=== PATIENT | male | born 1945 | race Caucasian/White ===

== ENCOUNTER → 2018-03-21 06:55 | Outpatient (CLI) | payer MEDICARE, SELFPAY ==
--- NOTE | 2018-03-21 | DI.CT.S_ITS ---
PROCEDURE: CT ABDOMEN WO/W CON INDICATIONS: FOLLOWING LEFT RENAL MASS TECHNIQUE: Optional 5 mm thick noncontrast images acquired from the diaphragm to the iliac crests. After the administration of intravenous contrast, 5 mm thick images again acquired from the diaphragm to the iliac crests in the arterial and urographic phases. 5 mm thick coronal and sagittal reformats were then acquired. For radiation dose reduction, the following was used: automated exposure control, adjustment of mA and/or kV according to patient size. COMPARISON: [facility], CT, ABDOMEN W&WO CONTRAST, 09/11/2015, 8:25. [facility], US, RENAL COMPLETE, 09/01/2015, 11:47. FINDINGS: Image quality: Excellent. Lung bases: Lung bases are clear. Heart size is normal. Genitourinary: The kidneys demonstrate normal size. On precontrast imaging, small bilateral nonobstructing kidney stones are seen. The largest on the left measures 1-2 mm. The largest on the right measures 2 mm, as on series 2 image 26. At the superior pole of the left kidney, there is a low-density lesion seen that measures 17 x 15 mm in greatest axial dimension, with a craniocaudal extent of 1.9 cm. On precontrast imaging, this measures 32 Hounsfield units. On the delay after 30 seconds, this measures 36 Hounsfield units. On the 10 minute delayed images also measures 36 Hounsfield units. Simple appearing bilateral renal cysts are seen elsewhere. When filled with contrast, the renal calyces demonstrate a normal appearance. There is no hydronephrosis. The visualized ureters are unremarkable. Other solid organs: Liver is normal in size and enhancement. Gallbladder is partially collapsed at the time of this study. Biliary system is non dilated. Pancreas enhances normally. The spleen is enlarged, measuring nearly 16 cm in greatest axial dimension, and nearly 15 cm craniocaudally. No adrenal nodules. Peritoneum and bowel: Unenhanced bowel loops are normal in wall thickness and caliber. No free fluid or air. Nodes and vessels: No retroperitoneal or mesenteric adenopathy by size criteria. Aorta and inferior vena cava are normal in caliber. Atherosclerotic calcification is noted. Bones: No suspicious bony lesions. No vertebral body compression fractures. Age-appropriate bony degenerative changes are seen. Miscellaneous: No ventral hernias. IMPRESSION: Nonenhancing hyperdense cyst at the superior pole of the left kidney. Simple appearing bilateral renal cysts are seen. Nonobstructing bilateral renal stones are seen. Splenomegaly. Dictated by: Jesus Manuel Salgado M.D. on 03/21/2018 at 10:45 Approved by: Jesus Manuel Slagado M.D. on 03/21/2018 at 10:59
== END ==
PROVIDERS: Visit Provider Student in an Organized Health Care Education/Training Program
DX: N28.1 Cyst of kidney, acquired (principal); N20.0 Calculus of kidney; N28.9 Disorder of kidney and ureter, unspecified; R16.1 Splenomegaly, not elsewhere classified
CPT/HCPCS: 74170; Q9967

== ENCOUNTER → 2018-06-21 10:10 | Outpatient (CLI) | payer MEDICARE, SELFPAY ==
--- NOTE | 2018-06-21 | DI.RAD.S_ITS ---
PROCEDURE: XR SHOULDER LT MIN 2V INDICATIONS: PAIN IN LEFT SHOULDER TECHNIQUE: 3 -views of the shoulder were acquired. COMPARISON: [facility], SHOULDER MINIMUM 2VIEW RIGHT, 12/22/2011, 10:25. [facility], SHOULDER MINIMUM 2 VIEW LEFT, 12/22/2011, 10:20. [facility], SHOULDER MINIMUM 2VIEW RIGHT, 08/13/2013, 17:54. FINDINGS: Bones: No fractures or dislocations. No suspicious bony lesions. Visualized ribs appear intact. [id number] AC and glenohumeral joint degeneration, with spurring and subchondral sclerosis. Soft tissues: No suspicious soft tissue calcifications. IMPRESSION: [id number] left shoulder joint degeneration. No interval change since 12/22/11 Dictated by: Harpreet Orantes M.D. on 06/21/2018 at 11:42 Approved by: Harpreet Orantes M.D. on 06/21/2018 at 11:43
--- NOTE | 2018-06-21 | DI.RAD.S_ITS ---
PROCEDURE: XR KNEE RT 3V INDICATIONS: PAIN IN RIGHT KNEE TECHNIQUE: 3 views of the knee were acquired. COMPARISON: None. FINDINGS: Bones: No fractures or dislocations. No suspicious bony lesions. Prominent spur at the superior and inferior pole of the patella. Mild medial joint space narrowing. Subchondral sclerosis and degenerative osteophyte formation. There is also chronic appearing osseous fragmentation of the tibial tuberosity suggesting sequela of Emmanuel-Schlatter disease Soft tissues: No joint effusion. No suspicious soft tissue calcifications. IMPRESSION: Mild right knee joint degeneration Distal quadriceps and proximal/distal patellar tendinopathy Dictated by: Harpreet Orantes M.D. on 06/21/2018 at 11:45 Approved by: Harpreet Orantes M.D. on 06/21/2018 at 11:46
--- NOTE | 2018-06-21 | DI.RAD.S_ITS ---
PROCEDURE: XR KNEE LT 3V INDICATIONS: PAIN IN LEFT KNEE TECHNIQUE: 3 views of the knee were acquired. COMPARISON: None. FINDINGS: Bones: No fractures or dislocations. No suspicious bony lesions. Mild narrowing of the medial joint space. Subchondral sclerosis and diffuse spurring. Prominent spur at the superior pole of the patella. Soft tissues: No joint effusion. No suspicious soft tissue calcifications. IMPRESSION: Mild left knee joint degeneration. Dictated by: Harpreet Orantes M.D. on 06/21/2018 at 11:44 Approved by: Harpreet Orantes M.D. on 06/21/2018 at 11:45
[2018-06-21 12:13] LABS: Magnesium 1.6 mg/dL (1.6-2.3)
== END ==
PROVIDERS: Visit Provider Student in an Organized Health Care Education/Training Program
DX: M25.512 Pain in left shoulder (principal); M19.012 Primary osteoarthritis, left shoulder; M17.0 Bilateral primary osteoarthritis of knee; M25.562 Pain in left knee; M25.561 Pain in right knee; E83.42 Hypomagnesemia
CPT/HCPCS: 36415; 73030; 73562; 83735

== ENCOUNTER → 2018-10-11 11:52 | Outpatient (CLI) | payer MEDICARE, MEDICAID, SELFPAY ==
--- NOTE | 2018-10-11 | DI.US.S_ITS ---
PROCEDURE: US ARTERIAL DUPLEX LE BI INDICATIONS: Peripheral vascular disease, unspecified TECHNIQUE: Color and pulse Doppler interrogation was performed of both lower extremity arterial systems, with image documentation. COMPARISON: None. FINDINGS: Right lower extremity: Common femoral artery: 142 cm/sec, with triphasic flow. Deep femoral artery: 56 cm/sec, with triphasic flow. Proximal superficial femoral artery: 84 cm/sec, with triphasic flow. Mid superficial femoral artery: 101 cm/sec, with triphasic flow. Distal superficial femoral artery: 98 cm/sec, with triphasic flow. Popliteal artery: 55 cm/sec, with triphasic flow. Posterior tibial artery: 85 cm/sec, with triphasic flow. Anterior tibial artery/dorsalis pedis: 88 cm/sec, with triphasic flow. Ludwig-scale imaging description: Minimal scattered plaque. Left lower extremity: Common femoral artery: 82 cm/sec, with triphasic flow. Deep femoral artery: 66 cm/sec, with triphasic flow. Proximal superficial femoral artery: 66 cm/sec, with triphasic flow. Mid superficial femoral artery: 84 cm/sec, with triphasic flow. Distal superficial femoral artery: 58 cm/sec, with triphasic flow. Popliteal artery: 53 cm/sec, with triphasic flow. Posterior tibial artery: 93 cm/sec, with triphasic flow. Anterior tibial artery/dorsalis pedis: 38 cm/sec, with triphasic flow. Ludwig-scale imaging description: Minimal scattered plaque. IMPRESSION: Minimal scattered plaque without hemodynamically significant stenosis. Dictated by: Lona Perez M.D. on 10/11/2018 at 17:01 Approved by: Lona Perez M.D. on 10/11/2018 at 17:03
== END ==
PROVIDERS: Visit Provider Student in an Organized Health Care Education/Training Program
DX: I73.9 Peripheral vascular disease, unspecified (principal)
CPT/HCPCS: 93925

== ENCOUNTER → 2020-03-10 08:58 | Outpatient (CLI) | payer MEDICARE, MEDICAID, SELFPAY ==
[2020-03-10 11:37] LABS: Add Manual Diff / Slide Review NO; Basophils Absolute Auto 0 /uL (0-100); Basophils Percent Auto 0.7 % (0-2); Eosinophils Absolute Auto 200 /uL (0-450); Eosinophils Percent Auto 4.5 % (2-4); Hemoglobin 14.1 g/dL (13.5-17.5); Lymphocytes Absolute Auto 900 /uL (1100-4500); Lymphocytes Percent Auto 21.9 % (25-40); Mean Corpuscular HGB Conc 35.2 % (30-36); Mean Corpuscular Hemoglobin 31.3 PG (26-34); Mean Corpuscular Volume 89.1 fL (80-100); Monocytes Absolute Auto 300 /uL (0-900); Monocytes Percent Auto 8.6 % (3-14); Neutrophils Absolute Auto 2600 /uL (1500-7000); Neutrophils Percent Auto 64.3 % (50-75); Platelet Count 142 X10^3/uL (150-400); Red Blood Cell Count 4.49 X10^6/uL (4.5-5.9); Red Cell Distribution Width 13.7 % (11.6-14.8)
[2020-03-10 12:07] LABS: Alanine Aminotransferase 28 IU/L (<50); Albumin 4.4 g/dL (3.5-5.0); Albumin Globulin Ratio 1.6 (1.0-2.8); Alkaline Phosphatase 80 U/L (38-126); Aspartate Aminotransferase 22 IU/L (17-59); Bilirubin Total 1.4 mg/dL (0.2-1.3); Blood Urea Nitrogen 30 mg/dL (9-20); Calcium 10.8 mg/dL (8.4-10.2); Carbon Dioxide 30 mmol/L (22-32); Chloride 106 mmol/L (98-107); Cholesterol 167 mg/dL (140-199); Estimated Glomerular Filt Rate > 60.0 mL/min (>60); Globulin 2.8 g/dL (1.7-4.1); Glucose 122 mg/dL (80-110); HDL Cholesterol 32 mg/dL (40-60); HEMOLYSIS < 15 (0-50); LDL Cholesterol Calculated 104 mg/dL (<100); Magnesium 1.7 mg/dL (1.6-2.3); Sodium 141 mmol/L (137-145); Total Protein 7.2 g/dL (6.3-8.2); Triglycerides 156 mg/dL (35-150)
[2020-03-10 12:16] LABS: Potassium 5.5 mmol/L (3.4-5.1)
[2020-03-10 12:37] LABS: Prostate Specific Antigen Scrn 9.42 ng/mL (0.1-4.0)
[2020-03-11 07:00] LABS: Parathyroid Hormone Int 68 pg/mL (15-65)
== END ==
PROVIDERS: Referring Provider Student in an Organized Health Care Education/Training Program; Visit Provider Student in an Organized Health Care Education/Training Program
DX: N40.1 Benign prostatic hyperplasia with lower urinary tract symptoms (principal); R73.01 Impaired fasting glucose; R25.2 Cramp and spasm; N20.0 Calculus of kidney; E21.3 Hyperparathyroidism, unspecified; Z12.5 Encounter for screening for malignant neoplasm of prostate
CPT/HCPCS: 36415; 80053; 80061; 83735; 83970; 85025; G0103

== ENCOUNTER → 2020-09-10 09:17 | Outpatient (CLI) | payer MEDICARE, MEDICAID, SELFPAY ==
[2020-09-10 10:03] LABS: BUN Creatinine Ratio 28.2 (6-22); Blood Urea Nitrogen 29 mg/dL (9-20); Estimated Glomerular Filt Rate > 60.0 mL/min (>60)
== END ==
PROVIDERS: PCP Student in an Organized Health Care Education/Training Program; Referring Provider Student in an Organized Health Care Education/Training Program; Visit Provider Student in an Organized Health Care Education/Training Program
DX: N28.89 Other specified disorders of kidney and ureter (principal)
CPT/HCPCS: 36415; 82565; 84520

== ENCOUNTER → 2020-09-11 09:24 | Outpatient (CLI) | payer MEDICARE, MEDICAID, SELFPAY ==
--- NOTE | 2020-09-11 09:45 | DI.CT.S_ITS ---
PROCEDURE: CT ABDOMEN WO/W CON INDICATIONS: Renal mass comparison TECHNIQUE: Optional 5 mm thick noncontrast images acquired from the diaphragm to the iliac crests. After the administration of intravenous contrast, 5 mm thick images again acquired from the diaphragm to the iliac crests in the arterial and urographic phases. 5 mm thick coronal and sagittal reformats were then acquired. For radiation dose reduction, the following was used: automated exposure control, adjustment of mA and/or kV according to patient size. COMPARISON: CT, ABDOMEN W&WO CONTRAST, 09/11/2015, 8:25. [facility], US, US ARTERIAL DUPLEX LE BI, 10/11/2018, 12:24. [facility], CT, CT ABDOMEN WO/W CON, 03/21/2018, 7:38. FINDINGS: Image quality: Excellent. Lung bases: Lung bases are clear. Heart size is mildly increased. Small hiatal hernia. Genitourinary: There is a 1.9 cm isodense nodule seen in the superior pole of the left kidney on precontrast images demonstrating CT density 38.4 HU. On postcontrast images, there is no visible enhancement. It is compatible with a cyst. Compared to the last CT on 03/21/2018, the cyst is slightly enlarged (previously measuring 1.6 cm). There are multiple simple appearing low-density nodules in kidneys bilaterally compatible with simple renal cysts. No solid nodules are identified. There are multiple nonobstructive renal calculi. No hydronephrosis. Other solid organs: Liver is normal in size and enhancement. Gallbladder is normal . Biliary system is non dilated. Pancreas enhances normally. Spleen is enlarged measuring 15 cm in length. No adrenal nodules. Peritoneum and bowel: Unenhanced bowel loops are normal in wall thickness and caliber. No free fluid or air. Nodes and vessels: No retroperitoneal or mesenteric adenopathy by size criteria. Aorta and inferior vena cava are normal in caliber. Mild aortic atherosclerosis. Bones: No suspicious bony lesions. No vertebral body compression fractures. Miscellaneous: No ventral hernias. IMPRESSION: 1. A isodense nodule in the superior pole of the left kidney demonstrates no postcontrast enhancement, compatible with a cyst. It appears slightly enlarged since 2018. 2. Multiple simple renal cysts in kidneys bilaterally. 3. Nephrolithiasis with multiple nonobstructive renal calculi. 4. Splenomegaly. Dictated by: Jarret Meyer M.D. on 09/11/2020 at 11:05 Approved by: Jarret Meyer M.D. on 09/11/2020 at 11:34
== END ==
PROVIDERS: PCP Student in an Organized Health Care Education/Training Program; Referring Provider Student in an Organized Health Care Education/Training Program; Visit Provider Student in an Organized Health Care Education/Training Program
DX: N28.89 Other specified disorders of kidney and ureter (principal); N28.1 Cyst of kidney, acquired; N20.0 Calculus of kidney; R16.1 Splenomegaly, not elsewhere classified
CPT/HCPCS: 74170

== ENCOUNTER 2020-10-01 14:33 | Emergency (ER) | payer MEDICARE, MEDICAID, SELFPAY ==
[2020-10-01] VITALS (8 sets, daily range): BP systolic 127–149; BP diastolic 58–72; PULSE 68–78; RESP 16–35; TEMP 37.2; O2SAT 93–99; BMI 25.9
--- NOTE | 2020-10-01 14:46 | ED.GENADULT ---
HPI - General Adult General Chief complaint: Weakness Stated complaint: Weakness x2 weeks Time Seen by Provider: 10/01/20 14:41 Source: patient Mode of arrival: EMS Limitations: no limitations History of Present Illness HPI narrative: 75-year-old male who is brought in by EMS for evaluation of weakness. He states this has been going on for the past several weeks. He went to his primary doctor's office today and was sent here because he was feeling very weak. He has little other associated symptoms. He states that he has not had much to eat in the past several days because he states that he lost his smell and also lost his sense of taste. Has not had any fevers. Some shortness of breath. Has not been around anyone else who has been sick. He is not diabetic. He also states that he has not eaten because his daughter whom with he lives does not by the food that he likes to eat. Related Data Home Medications Medication Instructions Recorded Confirmed aspirin 325 mg PO QDAY #0 04/25/12 Previous Rx's Medication Instructions Recorded doxycycline hyclate 100 mg PO Q12H #20 cap 02/03/16 benzonatate [Tessalon Perles] 100 mg PO BID PRN #30 cap 10/01/20 Allergies Allergy/AdvReac Type Severity Reaction Status Date / Time cephalexin [CEPHALEXIN] Allergy Intermediate RASH Verified 10/01/20 14:37 Review of Systems Constitutional Constitutional: Reports fatigue, Denies fever(s), Reports lethargy, Reports malaise and Reports weakness ENT Ears, Nose, Mouth, and Throat: Denies dizziness Comments: Loss of sense of smell and taste Cardiovascular Cardiovascular: Denies chest pain and Reports dyspnea Respiratory Respiratory: Reports dyspnea Gastrointestinal Gastrointestinal: Denies abdominal pain, Denies nausea and Denies vomiting Musculoskeletal Musculoskeletal: Denies arthralgias and Denies myalgias Integumentary/Breasts Skin/Breast: Denies rash Neurologic Neurologic: Denies behavioral changes, Denies dizziness and Reports weakness Psychiatric Psychiatric: Denies behavioral changes Endocrine Endocrine: Reports fatigue Hematologic/Lymphatic On Anticoagulants: No Allergic/Immunologic Allergic/Immunologic: Denies urticaria Patient History Medical History Cellulitis Cellulitis of right arm Reducible left inguinal hernia Social History Smoking Status: Unknown if ever smoked Smoking Status: Unknown if ever smoked alcohol intake frequency: holidays/special occasions only Substance Use Type: does not use Exam Initial Vital Signs Initial Vital Signs: Vital Signs Temperature 98.9 F 10/01/20 14:32 Pulse Rate 72 10/01/20 14:32 Respiratory Rate 24 10/01/20 14:32 Blood Pressure 149/71 H 10/01/20 14:32 Pulse Oximetry 96 10/01/20 14:32 Const General: cooperative and comfortable Limitations: mental status not altered HENMT Head: normal to inspection and normocephalic Resp Effort & Inspection: normal respiratory effort Auscultation: clear to auscultation bilaterally Cardio Rate: regular rate Rhythm: regular rhythm GI Inspection: non-distended Palpation: soft Skin Lesions: no lesions Rashes: no rashes Neuro General: patient alert, patient awake and patient oriented x3 Cognition: normal cognition Speech: speech normal Extrem General: normal to inspection and capillary refill normal Psych Appearance: grossly normal and well kempt Course Orders Ordered: ED Orders 10/01/20 14:42 EKG-12 Lead Stat 10/01/20 14:45 COVID19 -Nasal swab/Pre-Proc Stat Complete Blood Count AUTO DIFF Stat Comprehensive Metabolic Panel Stat Lipase Stat Thyroid Stimulating Hormone Stat Troponin & CK Cardiac Panel Stat 10/01/20 15:08 XR chest 1V Stat Discontinued Medications Sodium Chloride (Normal Saline 0.9%) 1,000 mls @ 1,000 mls/hr IV BOLUS ONE Stop: 10/01/20 16:15 Last Admin: 10/01/20 15:24 Dose: 1,000 mls/hr Documented by: JOSE Vital Signs Vital signs: Vital Signs - 8 hr 10/01/20 14:32 10/01/20 14:35 10/01/20 15:00 Temperature 98.9 F Pulse Rate 72 73 73 Respiratory Rate 24 21 18 Blood Pressure 149/71 H 149/71 H 127/58 L Pulse Oximetry 96 96 10/01/20 15:30 10/01/20 15:31 10/01/20 16:00 Temperature Pulse Rate 74 78 73 Respiratory Rate 33 H 35 H 32 H Blood Pressure 132/63 130/60 Pulse Oximetry 93 95 96 10/01/20 16:30 Temperature Pulse Rate 73 Respiratory Rate 29 H Blood Pressure 134/62 Pulse Oximetry 98 Medical Decision Making Lab Data Lab results reviewed: Yes I reviewed the patient's lab results. Result diagrams: 10/01/20 14:45 10/01/20 14:45 Labs: Lab Results 10/01/20 10/01/20 10/01/20 Range/Units 14:45 14:45 14:45 WBC 10.6 (4.5-11.0) X10^3/uL RBC 3.91 L (4.5-5.9) X10^6/uL Hgb 12.0 L (13.5-17.5) g/dL Hct 34.4 L (41-53) % MCV 87.9 (80-100) fL MCH 30.6 (26-34) PG MCHC 34.9 (30-36) % RDW 12.8 (11.6-14.8) % Plt Count 231 (150-400) X10^3/uL Neut % (Auto) 83.4 H (50-75) % Lymph % (Auto) 5.4 L (25-40) % [place] % (Auto) 9.1 (3-14) % Eos % (Auto) 1.7 L (2-4) % Baso % (Auto) 0.4 (0-2) % Neut # (Auto) 8800 H (8966-7680) /uL Lymph # (Auto) 600 L (9356-6123) /uL Clayton # (Auto) 1000 H (0-900) /uL Eos # (Auto) 200 (0-450) /uL Baso # (Auto) 0 (0-100) /uL Sodium 137 (137-145) mmol/L Potassium 3.8 (3.4-5.1) mmol/L Chloride 101 (98-107) mmol/L Carbon Dioxide 29 (22-32) mmol/L BUN 39 H (9-20) mg/dL Creatinine 1.34 H (0.66-1.25) mg/dL Estimated GFR 52.1 L (>60) mL/min BUN/Creatinine Ratio 29.1 H (6-22) Glucose 134 H (80-110) mg/dL Calcium 10.6 H (8.4-10.2) mg/dL Total Bilirubin 1.0 (0.2-1.3) mg/dL AST 49 (17-59) IU/L ALT 68 H (<50) IU/L Alkaline Phosphatase 101 (38-126) U/L Total Creatine Kinase < 20 L (55-170) U/L CK-MB (CK-2) TNP CK-MB (CK-2) Rel Index TNP Troponin I < 0.012 (0.01-0.034) ng/mL Total Protein 7.1 (6.3-8.2) g/dL Albumin 3.7 (3.5-5.0) g/dL Globulin 3.4 (1.7-4.1) g/dL Albumin/Globulin Ratio 1.1 (1.0-2.8) Lipase 276 (23-300) U/L TSH (0.47-4.68) uIU/mL SARS-CoV-2 (PCR) Negative (Negative) 10/01/20 Range/Units 14:45 WBC (4.5-11.0) X10^3/uL RBC (4.5-5.9) X10^6/uL Hgb (13.5-17.5) g/dL Hct (41-53) % MCV (80-100) fL MCH (26-34) PG MCHC (30-36) % RDW (11.6-14.8) % Plt Count (150-400) X10^3/uL Neut % (Auto) (50-75) % Lymph % (Auto) (25-40) % [place] % (Auto) (3-14) % Eos % (Auto) (2-4) % Baso % (Auto) (0-2) % Neut # (Auto) (7608-3838) /uL Lymph # (Auto) (6480-7129) /uL Clayton # (Auto) (0-900) /uL Eos # (Auto) (0-450) /uL Baso # (Auto) (0-100) /uL Sodium (137-145) mmol/L Potassium (3.4-5.1) mmol/L Chloride (98-107) mmol/L Carbon Dioxide (22-32) mmol/L BUN (9-20) mg/dL Creatinine (0.66-1.25) mg/dL Estimated GFR (>60) mL/min BUN/Creatinine Ratio (6-22) Glucose (80-110) mg/dL Calcium (8.4-10.2) mg/dL Total Bilirubin (0.2-1.3) mg/dL AST (17-59) IU/L ALT (<50) IU/L Alkaline Phosphatase (38-126) U/L Total Creatine Kinase (55-170) U/L CK-MB (CK-2) CK-MB (CK-2) Rel Index Troponin I (0.01-0.034) ng/mL Total Protein (6.3-8.2) g/dL Albumin (3.5-5.0) g/dL Globulin (1.7-4.1) g/dL Albumin/Globulin Ratio (1.0-2.8) Lipase (23-300) U/L TSH 2.60 (0.47-4.68) uIU/mL SARS-CoV-2 (PCR) (Negative) Urine Dip Bedside Urine Glucose Negative Bedside Urine Bilirubin - Negative Bedside Urine Ketone - Negative Urine Specific [place] 1.020 Bedside Urine Occult Blood - Negative Bedside Urine pH 6 Bedside Urine Protein +/- 15 Bedside Urine Urobilinogen - Negative Bedside Urine Nitrite - Negative Bedside Urine Leukocytes - Negative Esterase Point of care testing: Urine Dip Bedside Urine Glucose Negative Bedside Urine Bilirubin - Negative Bedside Urine Ketone - Negative Urine Specific [place] 1.020 Bedside Urine Occult Blood - Negative Bedside Urine pH 6 Bedside Urine Protein +/- 15 Bedside Urine Urobilinogen - Negative Bedside Urine Nitrite - Negative Bedside Urine Leukocytes - Negative Esterase Imaging Data Chest x-ray: Radiologist's Impression: [address] [id number] ReportSigned Patient: Adin Lockett R#: [id number]: 7Acct:[id number]/Sex: 75 / MDate of Service: 10/01/20Loc: EDAccession Number: [id number] Procedure: XR chest 1V Ordering Provider: Manuel Chamorro D.O. PROCEDURE: XR CHEST 1V INDICATIONS: SOB TECHNIQUE: One view of the chest was acquired. COMPARISON: [facility], CHEST 2 VIEW, 06/19/2013, 10:29. FINDINGS: Surgical changes and devices: None. Lungs and pleura: Lungs are clear. No pleural effusions or pneumothorax. Mediastinum: Mediastinal contours appear normal. Heart size is normal. Bones and chest wall: No suspicious bony lesions. Overlying soft tissues appear unremarkable. IMPRESSION: No acute cardiopulmonary disease. Dictated by: Jarret Meyer M.D. on 10/01/2020 at 15:52 Approved by: Jarret Meyer M.D. on 10/01/2020 at 15:54 ECG Data Attestation: I personally reviewed and interpreted this ECG as follows: Prior ECG tracings: not available for review Interpretation: Sinus rhythm Ventricular rate is 70 Left axis deviation Right bundle branch block Nonspecific ST T wave changes MDM Narrative Medical decision making narrative: Patient looks well, his labs are relatively unremarkable, no signs of infection. He did stand at bedside in order to provide a urine sample. I was able to receive information from a hospital stay that he had approximately 2 weeks ago where appears that he was admitted for cardiac workup. He had multiple CT scans of his chest abdomen pelvis all of which were unremarkable. He had a nuclear stress test which showed no perfusion deficits. He did have kidney stones but no ureterolithiasis. It also appears that he has been having a chronic cough. His chest x-ray is unremarkable. Will send home with a prescription for Tessalon Perles. Will have him follow-up with his primary doctor. No indication for admission in the hospital. Discharge Plan Departure Patient Disposition: Home Clinical Impression: Fatigue, Cough Instructions: Cough (Alternative Therapy) Activity Restrictions/Additional Instructions: A prescription for some cough medicine was electronically transmitted to the pharmacy of your choice. Recommend you continue the rest of her medications as directed. During her last hospital stay it does appear that it was recommended that you follow-up with a professor of early childhood education to have an upper endoscopy. This can be set up through your primary doctor. Return to the emergency department for any new or worsening symptoms Prescriptions: New benzonatate [Tessalon Perles] 100 mg capsule 100 mg PO BID PRN (Reason: cough) Qty: 30 RF: 0 No Action aspirin 325 MG tablet,delayed release (DR/EC) 325 mg PO QDAY Qty: 0 RF: 0 doxycycline hyclate 100 MG capsule 100 mg PO Q12H Qty: 20 RF: 0 Referrals: Tori Foster PA-C [Primary Care Provider] -
[2020-10-01 14:54] LABS: Add Manual Diff / Slide Review NO; Basophils Absolute Auto 0 /uL (0-100); Basophils Percent Auto 0.4 % (0-2); Eosinophils Absolute Auto 200 /uL (0-450); Eosinophils Percent Auto 1.7 % (2-4); Hematocrit 34.4 % (41-53); Lymphocytes Absolute Auto 600 /uL (1100-4500); Lymphocytes Percent Auto 5.4 % (25-40); Mean Corpuscular HGB Conc 34.9 % (30-36); Mean Corpuscular Hemoglobin 30.6 PG (26-34); Mean Corpuscular Volume 87.9 fL (80-100); Monocytes Absolute Auto 1000 /uL (0-900); Monocytes Percent Auto 9.1 % (3-14); Neutrophils Absolute Auto 8800 /uL (1500-7000); Neutrophils Percent Auto 83.4 % (50-75); Platelet Count 231 X10^3/uL (150-400); Red Blood Cell Count 3.91 X10^6/uL (4.5-5.9); Red Cell Distribution Width 12.8 % (11.6-14.8); White Blood Cell Count 10.6 X10^3/uL (4.5-11.0)
--- NOTE | 2020-10-01 14:55 | PC.NURSE ---
Patient reports ongoing kidney stones with right flank pain, has had appropriate testing for this at [facility] on monday when he had right flank pain and gross hematuria. This is resolving although he still has intermittent flank pain. He reports he is here today for generalized weakness and weakness in legs preventing him from walking recently. When further questioned he states he hasn't been eating much for the last 2 weeks. States he has not eaten anything or drank anything except water for the last week. He reports he has an appetite and is very hungry but when he puts food in his mouth it has no taste or tastes terrible and so he spits it out and cannot eat it. No vomiting or abdominal pain. Reports that loss of taste and smell occurred 2 weeks ago with no other symptoms. Denies new cough or sore throat besides the cough he has had for 25 years. States he had a negative covid swab on monday in [place].
[2020-10-01 15:08] LABS: COVID19 -Nasal RAPID Negative (Negative)
--- NOTE | 2020-10-01 15:08 | DI.RAD.S_ITS ---
PROCEDURE: XR CHEST 1V INDICATIONS: SOB TECHNIQUE: One view of the chest was acquired. COMPARISON: [facility], , CHEST 2 VIEW, 06/19/2013, 10:29. FINDINGS: Surgical changes and devices: None. Lungs and pleura: Lungs are clear. No pleural effusions or pneumothorax. Mediastinum: Mediastinal contours appear normal. Heart size is normal. Bones and chest wall: No suspicious bony lesions. Overlying soft tissues appear unremarkable. IMPRESSION: No acute cardiopulmonary disease. Dictated by: Jarret Meyer M.D. on 10/01/2020 at 15:52 Approved by: Jarret Meyer M.D. on 10/01/2020 at 15:54
[2020-10-01 15:10] LABS: Alanine Aminotransferase 68 IU/L (<50); Albumin 3.7 g/dL (3.5-5.0); Albumin Globulin Ratio 1.1 (1.0-2.8); Alkaline Phosphatase 101 U/L (38-126); Aspartate Aminotransferase 49 IU/L (17-59); BUN Creatinine Ratio 29.1 (6-22); Blood Urea Nitrogen 39 mg/dL (9-20); Calcium 10.6 mg/dL (8.4-10.2); Carbon Dioxide 29 mmol/L (22-32); Chloride 101 mmol/L (98-107); Creatine Kinase < 20 U/L (55-170); Estimated Glomerular Filt Rate 52.1 mL/min (>60); Globulin 3.4 g/dL (1.7-4.1); Glucose 134 mg/dL (80-110); HEMOLYSIS < 15 (0-50); Lipase 276 U/L (23-300); Potassium 3.8 mmol/L (3.4-5.1); Sodium 137 mmol/L (137-145); Total Protein 7.1 g/dL (6.3-8.2)
[2020-10-01 15:22] LABS: Troponin I < 0.012 ng/mL (0.01-0.034)
[2020-10-01] MEDS: SODIUM CHLORIDE 0.9% 1,000 ML 1000 ML IV (15:24)
== END 2020-10-01 17:11 | disposition home or self-care (01) ==
PROVIDERS: Emergency Provider Emergency Medicine; PCP Student in an Organized Health Care Education/Training Program
DX: R05 Cough (principal); R53.83 Other fatigue
CPT/HCPCS: 36415; 71045; 80053; 81003; 82550; 83690; 84443; 84484; 85025; 87635; 93005; 96360; 96361; 99284; C9803

== ENCOUNTER → 2021-08-12 10:00 | Outpatient (CLI) | payer MEDICARE, MEDICAID, SELFPAY ==
--- NOTE | 2021-08-12 10:02 | DI.RAD.S_ITS ---
PROCEDURE: XR KUB INDICATIONS: elevated psa TECHNIQUE: One view of the abdomen acquired. COMPARISON: [facility], CT, CT ABDOMEN WO/W CON, 09/11/2020, 9:34. FINDINGS: Surgical changes and devices: None. Bowel: Bowel gas pattern is normal. Soft tissues: No suspicious abdominal calcifications. Enlargement of the splenic contour, measuring up to 18 cm. Bones: Multifocal degenerative change. IMPRESSION: No significant abnormality. Dictated by: Kyle Dumont M.D. on 08/12/2021 at 11:23 Approved by: Kyle uDmont M.D. on 08/12/2021 at 11:26
== END ==
PROVIDERS: PCP Student in an Organized Health Care Education/Training Program; Referring Provider Specialist; Visit Provider Specialist
DX: R97.20 Elevated prostate specific antigen [PSA] (principal)
CPT/HCPCS: 74018

== ENCOUNTER → 2021-09-10 09:35 | Outpatient (CLI) | payer MEDICARE, MEDICAID, SELFPAY ==
[2021-09-10 10:39] LABS: Appearance Urine UA CLEAR; Bilirubin Urine UA 1+ (NEGATIVE); Color Urine UA YELLOW; Glucose Urine UA TRACE g/dL (Negative); Ketones Urine UA NEGATIVE (NEGATIVE); Leukocyte Esterase Urine UA NEGATIVE (NEGATIVE); Nitrite Urine UA NEGATIVE (Negative); Occult Blood Urine UA 3+ (Negative); Protein Urine UA 2+ (Negative); pH Urine UA 5.5 (4.5-8.0)
[2021-09-10 10:59] LABS: Ictotest Urine Negative (Negative); RBC Urine 1-5/HPF (0-5/HPF); WBC Urine None Seen (0-5/HPF)
[2021-09-10 11:00] LABS: Amorphous Sediment Urine 1+; Bacteria Urine None Seen; Culture Indicated Urine Cult Not Indicated
== END ==
PROVIDERS: PCP Student in an Organized Health Care Education/Training Program; Referring Provider Specialist; Visit Provider Specialist
DX: R30.0 Dysuria (principal)
CPT/HCPCS: 81001